=== PATIENT | male | born 1980 | race Caucasian/White ===

== ENCOUNTER → 2017-10-11 | Outpatient (CLI) | payer BC ==
[2017-10-11 14:57] LABS: ABSOLUTE EOSINOPHILS # (AUTO) 0.2 10^3/uL (0.0-0.6); ABSOLUTE MONOCYTES (AUTO) 0.4 10^3/uL (0.1-1.4); ABSOLUTE NEUT (AUTO) 2.1 10^3/uL (1.7-8.2); BASOPHILS % (AUTO) 0.8 % (0-2); EOSINOPHILS % (AUTO) 3.6 % (0-6); HEMATOCRIT 38.6 % (37.9-51.0); HEMOGLOBIN 13.6 g/dL (13.5-17.0); LYMPHOCYTES % (AUTO) 51.8 % (13-45); MEAN CORPUSCULAR HEMOGLOBIN 31.5 pg (27.0-33.4); MEAN CORPUSCULAR HGB CONC 35.2 g/dL (32.0-36.0); MEAN CORPUSCULAR VOLUME 89 fl (80-97); MONOCYTES % (AUTO) 7.2 % (3-13); PLATELET COUNT 309 10^3/uL (150-450); RED BLOOD COUNT 4.32 10^6/uL (4.35-5.55); RED CELL DISTRIBUTION WIDTH 12.8 % (11.5-14.0); SEGMENTED NEUTROPHILS % (AUTO) 36.6 % (42-78); TOTAL CELLS COUNTED % (AUTO) 100 %; WHITE BLOOD COUNT 5.8 10^3/uL (4.0-10.5)
[2017-10-11 15:44] LABS: ERYTHROCYTE SEDIMENTATION RATE 9 mm/hr (0-15)
[2017-10-13 07:05] LABS: CYCLIC CITRUL PEPTIDE IGG/A AB 10 units (0-19)
== END ==
LOC: OD 13:45
PROVIDERS: ATTEND Physician Assistant
DX: M25.50 Pain in unspecified joint (principal)
CPT/HCPCS: 36415; 82306; 85025; 85652; 86038; 86140; 86200; 86430

== ENCOUNTER → 2018-07-28 | Outpatient (CLI) | payer BC ==
[2018-07-28 10:14] LABS: ABSOLUTE BASOPHILS # (AUTO) 0.1 10^3/uL (0.0-0.2); ABSOLUTE EOSINOPHILS # (AUTO) 0.3 10^3/uL (0.0-0.6); ABSOLUTE LYMPHOCYTES (AUTO) 2.9 10^3/uL (0.5-4.7); ABSOLUTE MONOCYTES (AUTO) 0.6 10^3/uL (0.1-1.4); BASOPHILS % (AUTO) 0.7 % (0-2); EOSINOPHILS % (AUTO) 3.6 % (0-6); HEMATOCRIT 43.1 % (37.9-51.0); HEMOGLOBIN 15.1 g/dL (13.5-17.0); LYMPHOCYTES % (AUTO) 32.2 % (13-45); MEAN CORPUSCULAR HEMOGLOBIN 31.5 pg (27.0-33.4); MEAN CORPUSCULAR VOLUME 90 fl (80-97); MONOCYTES % (AUTO) 6.8 % (3-13); PLATELET COUNT 365 10^3/uL (150-450); RED BLOOD COUNT 4.78 10^6/uL (4.35-5.55); RED CELL DISTRIBUTION WIDTH 13.2 % (11.5-14.0); SEGMENTED NEUTROPHILS % (AUTO) 56.7 % (42-78); TOTAL CELLS COUNTED % (AUTO) 100 %; WHITE BLOOD COUNT 8.9 10^3/uL (4.0-10.5)
[2018-07-28 10:41] LABS: ALANINE AMINOTRANSFERASE 31 U/L (21-72); ALBUMIN 3.9 g/dL (3.5-5.0); ALKALINE PHOSPHATASE 41 U/L (38-126); ANION GAP 7 (5-19); ASPARTATE AMINO TRANSFERASE 23 U/L (17-59); BILIRUBIN,DIRECT 0.1 mg/dL (0.0-0.4); BILIRUBIN,TOTAL 0.3 mg/dL (0.2-1.3); BLOOD UREA NITROGEN 8 mg/dL (7-20); CALCIUM 9.5 mg/dL (8.4-10.2); CARBON DIOXIDE 29 mmol/L (22-30); CHLORIDE 102 mmol/L (98-107); CHOLESTEROL 198.47 mg/dL (0-200); GLUCOSE 95 mg/dL (75-110); LITHIUM 0.8 mEq/L (0.6-1.2); POTASSIUM 4.9 mmol/L (3.6-5.0); SODIUM 137.6 mmol/L (137-145); TOTAL PROTEIN 6.3 g/dL (6.3-8.2); TRIGLYCERIDES 279 mg/dL (<150)
[2018-07-28 10:51] LABS: DIRECT LDL 126 mg/dL (<100)
[2018-07-28 10:53] LABS: VLDL CHOLESTEROL 55.8 mg/dL (10-31)
== END ==
LOC: OD 09:20
PROVIDERS: ATTEND Nurse Practitioner Psychiatric/Mental Health
DX: F31.9 Bipolar disorder, unspecified (principal); Z79.899 Other long term (current) drug therapy
CPT/HCPCS: 36415; 80053; 80061; 80178; 83036; 84443; 85025

== ENCOUNTER 2018-10-07 18:57 | Emergency (ER) | payer BC ==
[2018-10-07] MEDS ORDERED: LIDOCAINE 1%/EPINEPHRINE INJ 20 ML VIAL INJ ONE (19:53)
--- NOTE | 2018-10-07 19:54 | ER Document Report ---
ED General - General Chief Complaint: Laceration Stated Complaint: LEFT WRIST INJURY Time Seen by Provider: 10/07/18 19:26 Primary Care Provider: [facility] [Provider Group] - Follow up as needed ANTONETTE ARAUZ NP [Primary Care Provider] - Follow up in 3-5 days Notes: Patient is a 38-year-old male with history of bipolar disorder that presents to the emergency department for chief complaint of left wrist laceration, intentional. Patient states that his asked for divorce today, which he states he was blindsided by, and states that he was not thinking straight, and took a razor blade, and cut his left wrist. He denies drinking any alcohol or using any drugs today, he does have depression, anxiety and bipolar disorder and is on medications which he states he is compliant with. He denies taking any medications in excess. He does have an established psychiatrist. Patient states he never done anything like this before, states that he did this out of your motion, states that he can think of anything else to do, and said "F it." He states he completely regrets doing this, stating that it was "stupid", and denies any suicidal ideation at this time, denies hallucinations, delusions, or any other symptoms at this time. He complains of mild pain in his wrist, denies any weakness or tingling in his hand. He does not know when his last tetanus vaccination was. He states he has 4 children, 3 boys and one girl, states that he cares for them very much, and he would never commit suicide. He does have friends at bedside. Past Medical History: Depression, anxiety, bipolar disorder Past Surgical History: Denies recent or pertinent surgical history Social History: Denies current tobacco, alcohol or illicit drug use. Family History: Reviewed and noncontributory for presenting illness Allergies: Reviewed, see documented allergy list. REVIEW OF SYSTEMS: Other than noted above, the 12 point review of systems was reviewed with the patient and were negative, all pertinent findings are included in the HPI. PHYSICAL EXAMINATION: Vital signs reviewed, nursing noted reviewed. GENERAL: Well-appearing, well-nourished and in no acute distress. HEAD: Atraumatic, normocephalic. EYES: Eyes appear normal, extraocular movements intact, sclera anicteric, conjunctiva are normal. ENT: nares patent, oropharynx clear without exudates. Moist mucous membranes. NECK: Normal range of motion, supple without lymphadenopathy LUNGS: Breath sounds clear to auscultation bilaterally and equal. No wheezes rales or rhonchi. HEART: Regular rate and rhythm without murmurs ABDOMEN: Soft, nontender, normoactive bowel sounds. No rebound, guarding, or rigidity. No masses appreciated. EXTREMITIES: Left wrist laceration, linear, and perpendicular to the wrist, measures approximately 4 cm in length, deep to the subcutaneous tissues, the palmaris longus tendon is exposed, but appears intact. Patient's tendon function, with flexion of the MCP, PIP and DIP joints of all digits is intact, and flexion at the wrist is intact, against resistance. The rest the patient's extremity exam is grossly unremarkable. Cap refill is less than 3 seconds, the patient's radial pulses are equal and 2/4 bilaterally. NEUROLOGICAL: No focal neurological deficits. Moves all extremities spontaneously Motor and sensory grossly intact on exam. PSYCH: Normal mood, normal affect. SKIN: Warm, Dry, normal turgor, no rashes or lesions noted on exposed skin TRAVEL OUTSIDE OF THE [place] IN LAST 30 DAYS: No - Related Data Allergies/Adverse Reactions: No Known Allergies Allergy (Unverified 10/07/18 19:34) Past Medical History - Social History Smoking Status: Never Smoker Chew tobacco use (# tins/day): No Frequency of alcohol use: None Drug Abuse: None Family History: Reviewed & Not Pertinent Patient has suicidal ideation: No Patient has homicidal ideation: No Renal/ Medical History: Denies: Hx Peritoneal Dialysis Psychiatric Medical History: Reports: Hx Depression Past Surgical History: Reports: Hx Orthopedic Surgery - neck and left shoulder Physical Exam - Vital signs Vitals: Temp Pulse Resp BP Pulse Ox 98.8 F 82 20 133/85 H 96 10/07/18 19:11 10/07/18 19:11 10/07/18 19:11 10/07/18 19:11 10/07/18 19:11 Course - Re-evaluation Re-evalutation: Patient seen and examined vital signs reviewed. Laboratory data and/or imaging were ordered as appropriate for the patient's presenting symptoms and complaint, with consideration of any critical or life threatening conditions that may be associated with their obtained history and exam as noted above. Patient was treated with suture repair as noted. Results were reviewed when available and demonstrated unremarkable work-up, nino tovar medically cleared, I sent discussed with the patient and the patient's family at length, regarding his intentions today, he states he did this out of fear of motion, and states that he has no intent to harm himself, and he does want to live, he is sister, and good friend, are at bedside, and states that they will watch the patient, there watch his medications as well, and have him follow-up with his psychiatrist, which he does have an established with [facility], he is also given mobile crisis information, to call if needed, patient advised to follow-up in 8 to 10 days to have his sutures removed. At this point I do not feel that the patient is an imminent threat to himself, after discussions with both him and his family and friends at bedside, and can be discharged to follow- up as outpatient, but they were advised if at any time they could return to the emergency department for any further concern. The patient was re-evaluated and was stable, patient was also updated on his tetanus vaccination. Evaluation was most consistent with intentional left wrist laceration. Results were discussed with the patient at this point, after careful consideration I feel that that patient can be discharged from the emergency department, the patient was educated treatments and reasons to return to the emergency department based on their presumed diagnosis as noted above, they were advised to followup with a primary care physician in 2-3 days. Patient was agreeable to plan of care. *Note is created using voice recognition software and may contain spelling, syntax or grammatical errors. Laboratory 10/07/18 10/07/18 10/07/18 20:15 20:15 20:34 WBC 9.0 RBC 4.54 Hgb 14.0 Hct 40.8 MCV 90 MCH 30.9 MCHC 34.4 RDW 12.6 Plt Count 323 Seg Neutrophils % 53.5 Lymphocytes % 36.0 Monocytes % 6.5 Eosinophils % 3.0 Basophils % 1.0 Absolute Neutrophils 4.8 Absolute Lymphocytes 3.3 Absolute Monocytes 0.6 Absolute Eosinophils 0.3 Absolute Basophils 0.1 Sodium 138.2 Potassium 4.4 Chloride 100 Carbon Dioxide 27 Anion Gap 11 BUN 9 Creatinine 0.98 Est GFR ( Amer) > 60 Est GFR (Non-Af Amer) > 60 Glucose 85 Calcium 9.7 Total Bilirubin 0.4 Direct Bilirubin 0.3 Neonat Total Bilirubin Not Reportable Neonat Direct Bilirubin Not Reportable Neonat Indirect Bili Not Reportable AST 25 ALT 28 Alkaline Phosphatase 41 Total Protein 7.1 Albumin 4.5 Urine Color Urine Appearance Urine pH Ur Specific [place] Urine Protein Urine Glucose (UA) Urine Ketones Urine Blood Urine Nitrite Urine Bilirubin Urine Urobilinogen Ur Leukocyte Esterase Urine WBC (Auto) Urine RBC (Auto) U Hyaline Cast (Auto) Urine Mucus (Auto) Urine Ascorbic Acid Salicylates < 1.0 L Urine Opiates Screen UNCONFIRMED POSITIVE Urine Methadone Screen NEGATIVE Acetaminophen < 10 L Ur Barbiturates Screen NEGATIVE Ur Phencyclidine Scrn NEGATIVE Ur Amphetamines Screen NEGATIVE U Benzodiazepines Scrn NEGATIVE [place] 0.7 Urine Cocaine Screen NEGATIVE U Marijuana (THC) Screen NEGATIVE Serum Alcohol < 10 10/07/18 20:34 WBC RBC Hgb Hct MCV MCH MCHC RDW Plt Count Seg Neutrophils % Lymphocytes % Monocytes % Eosinophils % Basophils % Absolute Neutrophils Absolute Lymphocytes Absolute Monocytes Absolute Eosinophils Absolute Basophils Sodium Potassium Chloride Carbon Dioxide Anion Gap BUN Creatinine Est GFR ( Amer) Est GFR (Non-Af Amer) Glucose Calcium Total Bilirubin Direct Bilirubin Neonat Total Bilirubin Neonat Direct Bilirubin Neonat Indirect Bili AST ALT Alkaline Phosphatase Total Protein Albumin Urine Color YELLOW Urine Appearance CLEAR Urine pH 5.0 Ur Specific [place] 1.018 Urine Protein NEGATIVE Urine Glucose (UA) NEGATIVE Urine Ketones NEGATIVE Urine Blood NEGATIVE Urine Nitrite NEGATIVE Urine Bilirubin NEGATIVE Urine Urobilinogen NEGATIVE Ur Leukocyte Esterase NEGATIVE Urine WBC (Auto) 1 Urine RBC (Auto) 0 U Hyaline Cast (Auto) 9 Urine Mucus (Auto) OCC Urine Ascorbic Acid NEGATIVE Salicylates Urine Opiates Screen Urine Methadone Screen Acetaminophen Ur Barbiturates Screen Ur Phencyclidine Scrn Ur Amphetamines Screen U Benzodiazepines Scrn [place] Urine Cocaine Screen U Marijuana (THC) Screen Serum Alcohol - Vital Signs Vital signs: Temp Pulse Resp BP Pulse Ox 98.1 F 80 18 128/76 H 99 10/07/18 22:07 10/07/18 22:07 10/07/18 22:07 10/07/18 22:07 10/07/18 22:07 - Laboratory Result Diagrams: 10/07/18 20:15 10/07/18 20:15 Laboratory results interpreted by me: 10/07/18 20:15 Salicylates < 1.0 L Acetaminophen < 10 L - EKG Interpretation by Me Additional EKG results interpreted by me: EKG demonstrates normal sinus rhythm with a ventricular rate of 70 bpm, normal axis, normal intervals, no evidence of acute ischemia in this EKG, no prior for comparison. Procedures - Laceration/Wound Repair Left Wrist Wound length (cm): 4 Wound's Depth, Shape: Other - into subcutaneous tissues Laceration pre-procedure: Sterile PPE donned, Sterile drapes applied, Shur-Clens applied Anesthetic type: 1% Lidocaine w/epi Volume Anesthetic (mLs): 4 Wound explored: Clean Irrigated w/ Saline (mLs): 250 Wound Repaired With: Sutures Suture Size/Type: 4:0, Nylon Number of Sutures: 12 Layer Closure?: No Post-procedure wound care: Sterile dressing applied Post-procedure NV exam normal: Yes Complications: No Discharge - Discharge Clinical Impression: Self-inflicted injury Laceration of wrist Qualifiers: Encounter type: initial encounter Laterality: left Qualified Code(s): S61.512A - Laceration without foreign body of left wrist, initial encounter Condition: Stable Disposition: HOME, SELF-CARE Instructions: Depression ([facility]), Laceration Care ([facility]), Tetanus Immunization Given ([facility]) Additional Instructions: Please keep your wrist laceration, clean and dry, do not scrub the area, keep it covered while you are at work. Please return to the emergency department in 8 to 10 days to have your sutures removed. If you develop signs of infection such as pus drainage, redness to the wound or redness streaking up your arm, please return to the emergency department immediately. If you have thoughts of suicide, or homicide, or any further concerns, or depressive thoughts or thoughts of harming yourself, please call mobile crisis, and return to the emergency department immediately. Referrals: ANTONETTE ARAUZ NP [Primary Care Provider] - Follow up in 3-5 days [facility] [Provider Group] - Follow up as needed
[2018-10-07] MEDS ORDERED: DIPH/PERTUSS(ACELL)/TETANUS VAC/PF 0.5 ML SYR (>=10YO) IM ONE (20:02)
[2018-10-07 20:37] LABS: ABSOLUTE BASOPHILS # (AUTO) 0.1 10^3/uL (0.0-0.2); ABSOLUTE EOSINOPHILS # (AUTO) 0.3 10^3/uL (0.0-0.6); ABSOLUTE LYMPHOCYTES (AUTO) 3.3 10^3/uL (0.5-4.7); ABSOLUTE MONOCYTES (AUTO) 0.6 10^3/uL (0.1-1.4); ABSOLUTE NEUT (AUTO) 4.8 10^3/uL (1.7-8.2); HEMATOCRIT 40.8 % (37.9-51.0); MEAN CORPUSCULAR HEMOGLOBIN 30.9 pg (27.0-33.4); MEAN CORPUSCULAR HGB CONC 34.4 g/dL (32.0-36.0); MEAN CORPUSCULAR VOLUME 90 fl (80-97); MONOCYTES % (AUTO) 6.5 % (3-13); PLATELET COUNT 323 10^3/uL (150-450); RED BLOOD COUNT 4.54 10^6/uL (4.35-5.55); RED CELL DISTRIBUTION WIDTH 12.6 % (11.5-14.0); SEGMENTED NEUTROPHILS % (AUTO) 53.5 % (42-78); TOTAL CELLS COUNTED % (AUTO) 100 %
[2018-10-07 20:52] LABS: APPEARANCE,URINE CLEAR; BILIRUBIN,URINE NEGATIVE (NEGATIVE); COLOR,URINE YELLOW; GLUCOSE, URINE NEGATIVE (NEGATIVE); KETONES,URINE NEGATIVE (NEGATIVE); LEUKOCYTE ESTERASE,URINE NEGATIVE (NEGATIVE); NITRITE,URINE NEGATIVE (NEGATIVE); PROTEIN,URINE NEGATIVE (NEGATIVE); URINE SPECIFIC GRAVITY 1.018; UROBILINOGEN,URINE NEGATIVE mg/dL (<2.0)
[2018-10-07 20:58] LABS: ALANINE AMINOTRANSFERASE 28 U/L (21-72); ALBUMIN 4.5 g/dL (3.5-5.0); ALKALINE PHOSPHATASE 41 U/L (38-126); ANION GAP 11 (5-19); ASPARTATE AMINO TRANSFERASE 25 U/L (17-59); BILIRUBIN,DIRECT 0.3 mg/dL (0.0-0.4); BILIRUBIN,TOTAL 0.4 mg/dL (0.2-1.3); BLOOD UREA NITROGEN 9 mg/dL (7-20); CALCIUM 9.7 mg/dL (8.4-10.2); CARBON DIOXIDE 27 mmol/L (22-30); CHLORIDE 100 mmol/L (98-107); GLUCOSE 85 mg/dL (75-110); LITHIUM 0.7 mEq/L (0.6-1.2); POTASSIUM 4.4 mmol/L (3.6-5.0); SODIUM 138.2 mmol/L (137-145); TOTAL PROTEIN 7.1 g/dL (6.3-8.2)
[2018-10-07 21:01] LABS: ACETAMINOPHEN < 10 ug/mL (10-30); ALCOHOL < 10 mg/dL (NONE DETECTED); SALICYLATE < 1.0 mg/dL (2.0-20.0)
[2018-10-07 21:07] LABS: URINE AMPHETAMINES SCREEN NEGATIVE; URINE BARBITURATES SCREEN NEGATIVE; URINE BENZODIAZEPINES SCREEN NEGATIVE; URINE COCAINE SCREEN NEGATIVE; URINE MARIJUANA (THC) SCREEN NEGATIVE; URINE METHADONE SCREEN NEGATIVE; URINE PHENCYCLIDINE SCREEN NEGATIVE
--- NOTE | 2018-10-07 22:15 | EKG REPORT ---
SEVERITY:- NORMAL ECG - SINUS RHYTHM : Confirmed by: Sunny Salmeron MD 07-Oct-2018 22:15:02
[2018-10-07 22:20] VITALS: BP 128/76
== END 2018-10-07 22:07 | disposition home or self-care (01) ==
LOC: ER 18:57
PROC: 0HQEXZZ Repair Left Lower Arm Skin, External Approach (ICD-10-PCS; principal; 2018-10-07)
DX: S61.512A Laceration without foreign body of left wrist, initial encounter (principal); X78.1XXA Intentional self-harm by knife, initial encounter; Y93.9 Activity, unspecified; Y92.9 Unspecified place or not applicable; Y99.9 Unspecified external cause status; F32.9 Major depressive disorder, single episode, unspecified; Z23 Encounter for immunization
CPT/HCPCS: 93005; 99283; 90471; 36415; 80307 ×4; 80178; 85025; 80053; 81001; 90715; 93010; 12002; J3490

== ENCOUNTER 2018-10-20 14:12 | Emergency (ER) | payer BC ==
--- NOTE | 2018-10-20 15:08 | ER Document Report ---
ED Medical Screen (RME) - General Chief Complaint: Psych Problem Stated Complaint: SUICIDAL IDEATION Time Seen by Provider: 10/20/18 15:04 Primary Care Provider: ANTONETTE ARAUZ NP [Primary Care Provider] - Follow up as needed Mode of Arrival: Ambulatory Information source: Patient Notes: Patient presents emergency department with suicidal ideations. Patient reports he was here 2 weeks ago when he slit his wrist. He reports he recently quit taking prescription drugs and feels suicide again. Feels like he is going to slit his wrist again. Reports he bought a brand-new razor. I have greeted and performed a rapid initial assessment of this patient. A comprehensive ED assessment and evaluation of the patient, analysis of test results and completion of the medical decision making process will be conducted by additional ED providers. Dictation of this chart was performed using voice recognition software; therefore, there may be some unintended grammatical errors. TRAVEL OUTSIDE OF THE [place] IN LAST 30 DAYS: No - Related Data Allergies/Adverse Reactions: No Known Allergies Allergy (Verified 10/20/18 14:23) Past Medical History Renal/ Medical History: Denies: Hx Peritoneal Dialysis Psychiatric Medical History: Reports: Hx Depression Past Surgical History: Reports: Hx Orthopedic Surgery - neck and left shoulder Physical Exam - Vital signs Vitals: Temp Pulse Resp BP Pulse Ox 99.1 F 90 18 135/87 H 95 10/20/18 14:21 10/20/18 14:21 10/20/18 14:21 10/20/18 14:21 10/20/18 14:21 Course - Vital Signs Vital signs: Temp Pulse Resp BP Pulse Ox 99.1 F 90 18 135/87 H 95 10/20/18 14:21 10/20/18 14:21 10/20/18 14:21 10/20/18 14:21 10/20/18 14:21 - Laboratory Result Diagrams: 10/20/18 15:15 10/20/18 15:15 Laboratory results interpreted by me: 10/20/18 10/20/18 10/20/18 15:15 15:15 18:40 Carbon Dioxide 31 H Calcium 10.5 H Albumin 5.1 H Urine Ketones TRACE H Salicylates < 1.0 L Acetaminophen < 10 L [place] 0.5 L Doctor's Discharge - Discharge Referrals: ANTONETTE ARAUZ NP [Primary Care Provider] - Follow up as needed
[2018-10-20 15:33] LABS: ABSOLUTE BASOPHILS # (AUTO) 0.1 10^3/uL (0.0-0.2); ABSOLUTE EOSINOPHILS # (AUTO) 0.1 10^3/uL (0.0-0.6); ABSOLUTE LYMPHOCYTES (AUTO) 2.3 10^3/uL (0.5-4.7); ABSOLUTE MONOCYTES (AUTO) 0.5 10^3/uL (0.1-1.4); ABSOLUTE NEUT (AUTO) 7.4 10^3/uL (1.7-8.2); BASOPHILS % (AUTO) 0.6 % (0-2); EOSINOPHILS % (AUTO) 0.8 % (0-6); HEMATOCRIT 44.1 % (37.9-51.0); HEMOGLOBIN 15.2 g/dL (13.5-17.0); LYMPHOCYTES % (AUTO) 21.9 % (13-45); MEAN CORPUSCULAR HEMOGLOBIN 31.1 pg (27.0-33.4); MEAN CORPUSCULAR HGB CONC 34.4 g/dL (32.0-36.0); MEAN CORPUSCULAR VOLUME 90 fl (80-97); MONOCYTES % (AUTO) 4.7 % (3-13); PLATELET COUNT 406 10^3/uL (150-450); RED BLOOD COUNT 4.88 10^6/uL (4.35-5.55); RED CELL DISTRIBUTION WIDTH 12.8 % (11.5-14.0); TOTAL CELLS COUNTED % (AUTO) 100 %; WHITE BLOOD COUNT 10.3 10^3/uL (4.0-10.5)
--- NOTE | 2018-10-20 15:33 | ER Document Report ---
ED Psych Disorder / Suicide - General Chief Complaint: Psych Problem Stated Complaint: SUICIDAL IDEATION Time Seen by Provider: 10/20/18 15:04 Primary Care Provider: ANTONETTE ARAUZ NP [Primary Care Provider] - Follow up as needed Mode of Arrival: Ambulatory Notes: Patient is here to be seen for suicidal ideation. Patient says that he is addicted to prescription drugs and feels that his addiction has caused him his and marriage and family. He says he has been taking prescription drugs for 8 years. He has had 3 neck surgeries. He stopped taking all of the narcotics [place] evening. Is feeling as if he might want to cut himself. He had a feeling of suicide a couple weeks ago and cut his left wrist. He is was taking OxyContin 20 mg twice a day and Percocet 10 mg twice a day. Also on many other drugs including Ambien and trazodone for sleep and Ativan as needed. He is in [employer]. TRAVEL OUTSIDE OF THE [place] IN LAST 30 DAYS: No - Related Data Allergies/Adverse Reactions: No Known Allergies Allergy (Verified 10/20/18 14:23) Past Medical History - General Information source: Patient - Social History Smoking Status: Current Every Day Smoker Chew tobacco use (# tins/day): No Frequency of alcohol use: None Drug Abuse: Prescription drugs Family History: Reviewed & Not Pertinent Patient has suicidal ideation: Yes Patient has homicidal ideation: No Psychiatric Medical History: Reports: Hx Depression Past Surgical History: Reports: Hx Orthopedic Surgery - neck and left shoulder Review of Systems - Review of Systems Notes: CONSTITUTIONAL : Denies fever. CARDIOVASCULAR: Denies chest pain. RESPIRATORY: Denies cough, chest congestion, or shortness of breath. GASTROINTESTINAL: Denies abdominal pain or nausea, vomiting, but has had some loose stools today. GENITOURINARY: Denies difficulty or painful urinating, urinary frequency, blood in urine. Psychiatric: Feels depressed and suicidal. See HPI. Physical Exam - Vital signs Vitals: Temp Pulse Resp BP Pulse Ox 99.1 F 90 18 135/87 H 95 10/20/18 14:21 10/20/18 14:21 10/20/18 14:21 10/20/18 14:21 10/20/18 14:21 Interpretation: Normal Notes: PHYSICAL EXAMINATION: GENERAL: Well-appearing, no acute distress. Vital signs are normal. Psychiatric: Patient is tearful at times during our discussions. Appears depressed. HEAD: Atraumatic, normocephalic. NECK: Normal range of motion, supple. LUNGS: Breath sounds clear and equal bilaterally. HEART: Regular rate and rhythm without murmurs heard. ABDOMEN: Soft, nontender. No guarding or rebound or masses felt. Extremities: Healing incision across the volar aspect of the distal left forearm, from self-inflicted wound 2 weeks ago. Course - Re-evaluation Re-evalutation: 10/20/18 20:09 Labs are unremarkable. Patient will be staying overnight to be evaluated by mental health in the morning. - Vital Signs Vital signs: Temp Pulse Resp BP Pulse Ox 98.6 F 96 20 123/66 98 10/21/18 09:29 10/21/18 09:29 10/21/18 09:29 10/21/18 09:29 10/21/18 09:29 - Laboratory Result Diagrams: 10/20/18 15:15 10/20/18 15:15 Laboratory results interpreted by me: 10/20/18 10/20/18 10/20/18 15:15 15:15 18:40 Carbon Dioxide 31 H Calcium 10.5 H Albumin 5.1 H Urine Ketones TRACE H Salicylates < 1.0 L Acetaminophen < 10 L [place] 0.5 L - EKG Interpretation by Mo EKG shows normal: Sinus rhythm Rate: Normal Rhythm: NSR Additional EKG results interpreted by sd: 10/20/18 20:10 EKG is normal. Discharge - Discharge Clinical Impression: Suicidal ideation, Depression Condition: Stable Disposition: PSYCH HOSP/UNIT Referrals: ANTONETTE ARAUZ NP [Primary Care Provider] - Follow up as needed
[2018-10-20 15:54] LABS: ALANINE AMINOTRANSFERASE 24 U/L (21-72); ALBUMIN 5.1 g/dL (3.5-5.0); ALKALINE PHOSPHATASE 46 U/L (38-126); ANION GAP 10 (5-19); ASPARTATE AMINO TRANSFERASE 23 U/L (17-59); BILIRUBIN,DIRECT 0.3 mg/dL (0.0-0.4); BILIRUBIN,TOTAL 0.5 mg/dL (0.2-1.3); BLOOD UREA NITROGEN 9 mg/dL (7-20); CALCIUM 10.5 mg/dL (8.4-10.2); CARBON DIOXIDE 31 mmol/L (22-30); CHLORIDE 102 mmol/L (98-107); GLUCOSE 104 mg/dL (75-110); POTASSIUM 4.8 mmol/L (3.6-5.0); SODIUM 143.2 mmol/L (137-145)
[2018-10-20 15:57] LABS: ACETAMINOPHEN < 10 ug/mL (10-30); ALCOHOL < 10 mg/dL (NONE DETECTED); SALICYLATE < 1.0 mg/dL (2.0-20.0)
[2018-10-20] MEDS ORDERED: FLUOXETINE HCL 20 MG CAPSULE PO ONE (17:34)
[2018-10-20] MEDS ORDERED: VENLAFAXINE HCL 37.5 MG CAP.SR.24H PO ONE (17:35)
[2018-10-20] MEDS ORDERED: BUSPIRONE HCL 10 MG TABLET PO ONE (17:35)
[2018-10-20 18:55] LABS: APPEARANCE,URINE CLEAR; BILIRUBIN,URINE NEGATIVE (NEGATIVE); COLOR,URINE YELLOW; GLUCOSE, URINE NEGATIVE (NEGATIVE); KETONES,URINE TRACE mg/dL (NEGATIVE); LEUKOCYTE ESTERASE,URINE NEGATIVE (NEGATIVE); NITRITE,URINE NEGATIVE (NEGATIVE); PROTEIN,URINE NEGATIVE (NEGATIVE); URINE SPECIFIC GRAVITY 1.019; UROBILINOGEN,URINE NEGATIVE mg/dL (<2.0)
[2018-10-20 19:14] LABS: URINE AMPHETAMINES SCREEN NEGATIVE; URINE BARBITURATES SCREEN NEGATIVE; URINE BENZODIAZEPINES SCREEN NEGATIVE; URINE COCAINE SCREEN NEGATIVE; URINE MARIJUANA (THC) SCREEN NEGATIVE; URINE METHADONE SCREEN NEGATIVE; URINE PHENCYCLIDINE SCREEN NEGATIVE
--- NOTE | 2018-10-20 19:35 | EKG REPORT ---
SEVERITY:- NORMAL ECG - SINUS RHYTHM : Confirmed by: Evelia Aranda MD 20-Oct-2018 19:34:38
[2018-10-20] MEDS ORDERED: TRAZODONE HCL 50 MG TABLET PO ONE (20:01)
[2018-10-20] MEDS ORDERED: ZOLPIDEM TARTRATE 5 MG TABLET PO ONE (20:01)
[2018-10-21 09:30] VITALS: BP 123/66
--- NOTE | 2018-10-21 09:34 | ER Document Report ---
Doctor's Note Notes: 10/21/18 09:33 HPI;Patient is here to be seen for suicidal ideation. Patient says that he is addicted to prescription drugs and feels that his addiction has caused him his and marriage and family. He says he has been taking prescription drugs for 8 years. He has had 3 neck surgeries. He stopped taking all of the narcotics Wednesday evening. Is feeling as if he might want to cut himself. He had a feeling of suicide a couple weeks ago and cut his left wrist. He is was taking OxyContin 20 mg twice a day and Percocet 10 mg twice a day. Also on many other drugs including Ambien and trazodone for sleep and Ativan as needed. He is in pain management. As the rounding physician this AM, I assessed the patient's labs, vitals, and records. No concerning findings this morning. Patient denies any acute complaints. Patient is cleared for disposition by psychiatry 10/21/18 09:51 PHYSICAL EXAMINATION: GENERAL: Well-appearing, well-nourished and in no acute distress. HEAD: Atraumatic, normocephalic. EYES: Pupils equal round extraocular movements intact, conjunctiva are normal. ENT: Nares patent NECK: Normal range of motion LUNGS: No respiratory distress Musculoskeletal: Normal range of motion NEUROLOGICAL: Normal speech, normal gait. PSYCH: Normal mood, normal affect. SKIN: Warm, Dry, normal turgor, no rashes or lesions noted. Patient is being transferred to [place] via law enforcement..
--- NOTE | 2018-10-28 15:58 | PSYCHOLOGICAL NOTE ---
Psych Note - Psych Note Date seen by psych provider: 10/20/18 Time seen by psych provider: 16:00 Psych Note: Reason for Consult: Suicidal ideation patient states he has had suicidal indentions. states he tried to kill himself by cutting left wrist 2 weeks ago. states still has SI thought and reports is addicted to opiates from past surgeries. patient became tearful and states "I blame them for losing my family". Patient is alert and orientated to person, place, time and circumstance. Patient reports feeling like going through withdrawal; last use of opiate reported Wednesday. Mood is dysphoric with tearful affect. Patient endorses suicidal ideation with a plan to drive to [place] and slit his wrists. Patient denies homicidal ideation. Delusions are absent behaviors congruent with an intact reality based presentation i.e. organized and linear thought process. Eye contact is poor. Conversational speech is within normal rate, tone and prosody. Intellectual abilities appear to be within the average range. Attention and concentration are fair. Insight, judgment, impulse control is poor. Patient is a [facility] patient and home medication are as follows Ambien 10 mg nightly BuSpar 5 mg twice daily lithium 300 mg twice daily Prozac 40 mg daily lorazepam 1 mg daily propranolol 20 mg 3 times daily trazodone 200mg QHS OxyContin 20 mg twice daily oxycodone 10 mg twice daily gabapentin 600 mg 3 times daily Cyclobenzaprine 10mg 3 times a day Substance use disorder; polysubstance to include opiate Unspecified bipolar disorder per history provided by patient Impression\\plan: Patient is recommended for IVC. Patient attempted to kill himself by slitting his wrist 2 weeks ago. Clinician observed significant scar on left wrist which includes scarring from the stitches. Patient reports stopping his pain medication cold turkey 2 days ago. Those pain medications include OxyContin and oxycodone. He reports that he blames the pain medication for losing his family. Strong plan of care was put in place 2 weeks ago by attending physician however since then patient has learned that there is now a protective order and his unable to see his children for the next year. Clinician notes thoughts of his children are what stopped him from continuing to harm himself 2 weeks ago. Patient endorses the idea of driving to [place] tonight to sit and again slit his wrists with the intent of killing himself. Patient will be reevaluated. Dr. Badillo was consulted to care management of this patient; attending physicians in agreement with recommendations and disposition.
--- NOTE | 2018-10-28 16:01 | PSYCHOLOGICAL NOTE ---
Psych Note - Psych Note Date seen by psych provider: 10/21/18 Time seen by psych provider: 09:40 Psych Note: Reason for Consult: Suicidal ideation patient states he has had suicidal indentions. states he tried to kill himself by cutting left wrist 2 weeks ago. states still has SI thought and reports is addicted to opiates from past surgeries. patient became tearful and states "I blame them for losing my family". Check in conducted with patient Patient continues to demonstrate tearful affect and reports ongoing suicidal ideation. Patient was accepted to [facility]; transportation has been requested. Substance use disorder; polysubstance to include opiate Unspecified bipolar disorder per history provided by patient Impression\\plan: Patient is recommended for continued IVC. Patient attempted to kill himself by slitting his wrist 2 weeks ago. Clinician observed significant scar on left wrist which includes scarring from the stitches. Patient continues to demonstrate dysphoric mood and tearful affect and reports ongoing suicidal ideation. Patient was accepted to [facility]; transportation has been requested. Dr. Badillo was consulted to care management of this patient; attending physicians in agreement with recommendations and disposition.
== END 2018-10-21 10:00 ==
LOC: ER 14:12
DX: R45.851 Suicidal ideations (principal); S66.922A Laceration of unspecified muscle, fascia and tendon at wrist and hand level, left hand, initial encounter; X78.9XXA Intentional self-harm by unspecified sharp object, initial encounter; F32.9 Major depressive disorder, single episode, unspecified; F19.10 Other psychoactive substance abuse, uncomplicated; Z79.899 Other long term (current) drug therapy; F17.200 Nicotine dependence, unspecified, uncomplicated
CPT/HCPCS: 93005; 99285; 36415; 80307 ×4; 80178; 85025; 80053; 81001; 93010; J3490

== ENCOUNTER 2018-11-08 09:12 | Emergency (ER) | payer BC ==
[2018-11-08] MEDS ORDERED: ASPIRIN 81 MG TABLET, CHEWABLE PO ONE (09:26)
--- NOTE | 2018-11-08 09:29 | ER Document Report ---
ED Medical Screen (RME) - General Chief Complaint: Chest Pain > 30 Stated Complaint: CHEST PAIN,WEAKNESS Time Seen by Provider: 11/08/18 09:26 Primary Care Provider: ANTONETTE ARAUZ NP [Primary Care Provider] - Follow up as needed Mode of Arrival: Ambulatory Information source: Patient Notes: Patient presents with left-sided chest pain for the past 10 days. Patient s tates pain has been constant. Patient reports mild cough and occasional shortness of breath. Patient reports recently coming off opiates and receiving inpatient treatment for detox. hx: Chronic neck pain, anxiety, depression I have greeted and performed a rapid initial assessment of this patient. A comprehensive ED assessment and evaluation of the patient, analysis of test results and completion of the medical decision making process will be conducted by additional ED providers. TRAVEL OUTSIDE OF THE [place] IN LAST 30 DAYS: No - Related Data Allergies/Adverse Reactions: No Known Allergies Allergy (Verified 10/20/18 14:23) Past Medical History Renal/ Medical History: Denies: Hx Peritoneal Dialysis Psychiatric Medical History: Reports: Hx Depression Past Surgical History: Reports: Hx Orthopedic Surgery - neck and left shoulder Physical Exam - Respiratory Respiratory status: No respiratory distress Chest status: Tender, Pain with deep breathing Breath sounds: Normal Chest palpation: Tender Doctor's Discharge - Discharge Referrals: ANTONETTE ARAUZ NP [Primary Care Provider] - Follow up as needed
[2018-11-08 09:56] LABS: ABSOLUTE BASOPHILS # (AUTO) 0.1 10^3/uL (0.0-0.2); ABSOLUTE EOSINOPHILS # (AUTO) 0.1 10^3/uL (0.0-0.6); ABSOLUTE LYMPHOCYTES (AUTO) 2.4 10^3/uL (0.5-4.7); ABSOLUTE MONOCYTES (AUTO) 0.7 10^3/uL (0.1-1.4); ABSOLUTE NEUT (AUTO) 7.1 10^3/uL (1.7-8.2); BASOPHILS % (AUTO) 0.8 % (0-2); EOSINOPHILS % (AUTO) 1.3 % (0-6); HEMATOCRIT 40.9 % (37.9-51.0); HEMOGLOBIN 14.5 g/dL (13.5-17.0); LYMPHOCYTES % (AUTO) 23.2 % (13-45); MEAN CORPUSCULAR HEMOGLOBIN 31.1 pg (27.0-33.4); MEAN CORPUSCULAR HGB CONC 35.4 g/dL (32.0-36.0); MEAN CORPUSCULAR VOLUME 88 fl (80-97); MONOCYTES % (AUTO) 6.4 % (3-13); PLATELET COUNT 338 10^3/uL (150-450); RED BLOOD COUNT 4.65 10^6/uL (4.35-5.55); RED CELL DISTRIBUTION WIDTH 12.7 % (11.5-14.0); SEGMENTED NEUTROPHILS % (AUTO) 68.3 % (42-78); TOTAL CELLS COUNTED % (AUTO) 100 %; WHITE BLOOD COUNT 10.4 10^3/uL (4.0-10.5)
[2018-11-08 10:30] LABS: ALANINE AMINOTRANSFERASE 23 U/L (21-72); ALBUMIN 4.7 g/dL (3.5-5.0); ALKALINE PHOSPHATASE 57 U/L (38-126); ANION GAP 12 (5-19); ASPARTATE AMINO TRANSFERASE 21 U/L (17-59); BILIRUBIN,DIRECT 0.2 mg/dL (0.0-0.4); BILIRUBIN,TOTAL 0.3 mg/dL (0.2-1.3); BLOOD UREA NITROGEN 10 mg/dL (7-20); CALCIUM 9.7 mg/dL (8.4-10.2); CARBON DIOXIDE 27 mmol/L (22-30); CHLORIDE 100 mmol/L (98-107); GLUCOSE 101 mg/dL (75-110); LIPASE 74.7 U/L (23-300); POTASSIUM 4.4 mmol/L (3.6-5.0); TOTAL PROTEIN 7.3 g/dL (6.3-8.2)
--- NOTE | 2018-11-08 11:24 | EKG REPORT ---
SEVERITY:- NORMAL ECG - SINUS RHYTHM : Confirmed by: Evelia Aranda MD 08-Nov-2018 11:22:35
--- NOTE | 2018-11-08 11:51 | RADIOLOGY REPORT (SQ) ---
EXAM DESCRIPTION: CHEST 2 VIEWS COMPLETED DATE/TIME: 11/08/2018 11:30 am REASON FOR STUDY: cp COMPARISON: None. EXAM PARAMETERS: NUMBER OF VIEWS: two views TECHNIQUE: Digital Frontal and Lateral radiographic views of the chest acquired. RADIATION DOSE: NA LIMITATIONS: none FINDINGS: LUNGS AND PLEURA: No opacities, masses or pneumothorax. No pleural effusion. MEDIASTINUM AND HILAR STRUCTURES: No masses or contour abnormalities. HEART AND VASCULAR STRUCTURES: Heart normal size. No evidence for failure. BONES: No acute findings. HARDWARE: None in the chest. OTHER: No other significant finding. IMPRESSION: No acute abnormality of the lungs. TECHNICAL DOCUMENTATION: JOB ID: [id number] [employer]- All Rights Reserved Reading location - IP/workstation name: [email or web address]
[2018-11-08 12:12] VITALS: BP 135/86
--- NOTE | 2018-11-08 12:14 | ER Document Report ---
ED General - General Chief Complaint: Chest Pain > 30 Stated Complaint: CHEST PAIN,WEAKNESS Time Seen by Provider: 11/08/18 09:26 Primary Care Provider: ANTONETTE ARAUZ NP [Primary Care Provider] - Follow up as needed Mode of Arrival: Ambulatory TRAVEL OUTSIDE OF THE [place] IN LAST 30 DAYS: No - HPI Notes: Patient is a 38-year-old male that presents to the emergency department for chief complaint of heart palpitations. Patient states he has been having episodes of heart palpitations. He states it hurts when his heart beats and it feels like it is beating fast. He states that he has checked it and it ranges from 10 5-1 20. He denies any associated shortness of breath, lightheadedness or syncope. He states that he has been detoxing from opiates and has been clean for 3 weeks now. He states that he did have severe withdrawals initially and feels this may be related to withdrawals. He is currently asymptomatic. He denies history of recent surgery, travel, leg swelling or cramping, or history of DVT/PE. He is not currently on anti-depression or anxiety medications Past Medical History: Chronic neck pain, depression, anxiety Past Surgical History: 3 cervical spine surgeries Social History: 3 weeks off of opiates. Denies tobacco and alcohol use Family History: Reviewed and noncontributory for presenting illness Allergies: Reviewed, see documented allergy list. REVIEW OF SYSTEMS: CONSTITUTIONAL : No fever No chills No diaphoresis No recent illness EENT: No vision changes No congestion No sore throat CARDIOVASCULAR: chest pain palpitations RESPIRATORY: No shortness of breath No cough No difficulty breathing GASTROINTESTINAL: No abdominal pain No nausea No vomiting No diarrhea GENITOURINARY: No dysuria No hematuria No difficulty urinating MUSCULOSKELETAL: No back pain No leg pain No arm pain SKIN: No rashes No lesions LYMPHATIC: No swollen, enlarged glands. NEUROLOGICAL: No lightheadedness No headache No weakness No paresthesias PSYCHIATRIC: No anxiety No depression PHYSICAL EXAMINATION: Vital signs reviewed, nursing noted reviewed. GENERAL: Well-appearing, well-nourished and in no acute distress. HEAD: Atraumatic, normocephalic. EYES: Eyes appear normal, extraocular movements intact, sclera anicteric, conjunctiva are normal. ENT: nares patent, oropharynx clear without exudates. Moist mucous membranes. NECK: Normal range of motion, supple without lymphadenopathy LUNGS: Breath sounds clear to auscultation bilaterally and equal. No wheezes rales or rhonchi. HEART: Regular rate and rhythm without murmurs, +2/4 bilateral radial and DP pulses ABDOMEN: Soft, nontender, normoactive bowel sounds. No rebound, guarding, or rigidity. No masses appreciated. EXTREMITIES: Nontender, good range of motion, no pitting or edema. NEUROLOGICAL: No focal neurological deficits. Moves all extremities spontaneously Motor and sensory grossly intact on exam. PSYCH: Normal mood, normal affect. SKIN: Warm, Dry, normal turgor, no rashes or lesions noted on exposed skin - Related Data Allergies/Adverse Reactions: No Known Allergies Allergy (Verified 10/20/18 14:23) Past Medical History - General Information source: Patient - Social History Smoking Status: Never Smoker Chew tobacco use (# tins/day): No Frequency of alcohol use: None Drug Abuse: Prescription drugs Family History: Reviewed & Not Pertinent Patient has suicidal ideation: No Patient has homicidal ideation: No Renal/ Medical History: Denies: Hx Peritoneal Dialysis Psychiatric Medical History: Reports: Hx Depression Past Surgical History: Reports: Hx Orthopedic Surgery - neck and left shoulder Physical Exam - Vital signs Vitals: Temp Pulse Resp BP Pulse Ox 98.2 F 86 16 122/90 H 97 11/08/18 09:16 11/08/18 09:16 11/08/18 09:16 11/08/18 09:16 11/08/18 09:16 Course - Re-evaluation Re-evalutation: 11/08/18 12:13 Vitals reviewed. Nursing notes reviewed. Patient is well-appearing and currently asymptomatic. His EKG shows no dysrhythmia or ectopy. He is PERC criteria negative and I am not clinically suspicious for acute PE at this time. Patient's work-up from triage is unremarkable. He has a negative troponin. He has no electrolyte derangements or signs of dehydration and renal insufficiency. Patient is not anemic. He is otherwise well-appearing. His symptoms are likely related to opiate withdrawal and anxiety. He was referred to [facility] and primary care for follow-up. He was counseled on return precautions. He is stable for discharge. Laboratory 11/08/18 11/08/18 11/08/18 09:45 09:45 09:45 WBC 10.4 RBC 4.65 Hgb 14.5 Hct 40.9 MCV 88 MCH 31.1 MCHC 35.4 RDW 12.7 Plt Count 338 Seg Neutrophils % 68.3 Lymphocytes % 23.2 Monocytes % 6.4 Eosinophils % 1.3 Basophils % 0.8 Absolute Neutrophils 7.1 Absolute Lymphocytes 2.4 Absolute Monocytes 0.7 Absolute Eosinophils 0.1 Absolute Basophils 0.1 Sodium 139.0 Potassium 4.4 Chloride 100 Carbon Dioxide 27 Anion Gap 12 BUN 10 Creatinine 0.92 Est GFR ( Amer) > 60 Est GFR (Non-Af Amer) > 60 Glucose 101 Calcium 9.7 Total Bilirubin 0.3 Direct Bilirubin 0.2 Neonat Total Bilirubin Not Reportable Neonat Direct Bilirubin Not Reportable Neonat Indirect Bili Not Reportable AST 21 ALT 23 Alkaline Phosphatase 57 Troponin I < 0.012 Total Protein 7.3 Albumin 4.7 Lipase 74.7 Chest X-Ray 11/08/18 09:26 IMPRESSION: No acute abnormality of the lungs. - Vital Signs Vital signs: Temp Pulse Resp BP Pulse Ox 98.2 F 86 16 122/90 H 99 11/08/18 09:16 11/08/18 09:16 11/08/18 09:16 11/08/18 09:16 11/08/18 09:26 - Laboratory Result Diagrams: 11/08/18 09:45 11/08/18 09:45 - EKG Interpretation by Me Additional EKG results interpreted by me: 11/08/18 12:13 Interpreted by myself [id number]: Normal sinus rhythm, rate 80, normal axis, no STEMI, no WPW Wellens or Brugada Discharge - Discharge Clinical Impression: Palpitations Condition: Stable Disposition: HOME, SELF-CARE Instructions: Palpitations (Irregular or Rapid Heartrate) ([facility]) Additional Instructions: Please return to the emergency department if you have any worsening, or concern of your symptoms. Please return to the emergency department if you develop chest pain, difficulty breathing, severe abdominal pain, lightheadedness, or ongoing vomiting. Please follow-up with your primary care physician in 2-3 days and any other recommended physicians. If prescribed, take all medications as directed. If you have any questions or concerns do not hesitate to return the emergency department for evaluation. Referrals: ANTONETTE ARAUZ NP [Primary Care Provider] - Follow up as needed [facility] [Provider Group] - Follow up as needed [facility] [Provider Group] - Follow up as needed [facility] [Provider Group] - Follow up as needed
== END 2018-11-08 12:29 | disposition home or self-care (01) ==
LOC: ER 09:12
DX: R00.2 Palpitations (principal); R07.9 Chest pain, unspecified; R53.1 Weakness
CPT/HCPCS: 36415; 71046; 80053; 83690; 84484; 85025; 93005; 93010; 99285